=== PATIENT | female | born 1955 | race Hispanic/Latino ===

== ENCOUNTER 2017-01-20 12:47 | Outpatient (CLI) | payer OTHER ==
--- NOTE | 2017-01-20 15:39 | Mammography Report ---
Screening augmented mammogram: Images over the implant as well as displacement images are obtained. Submuscular non-saline implants are present. The implants appear intact but the capsules are calcified. The surrounding tissue that an intermediate fibroglandular density. There is no mass, architectural distortion, or parenchymal calcification. Patient is unaware of prior exam location. CAD used. Impression: Calcified implant. No breast pathology identified. Recommendation: Annual mammogram followup. BI-RADS CATEGORY: 1 = Negative ACR BI-RADS MAMMOGRAPHIC CODES: 0 = Needs additional imaging evaluation; 1 = Negative; 2 = Benign; 3 = Probably benign; 4 = Suspicious; 5 = Malignant; 6 = Known biopsy-proven malignancy COMMENT: 1. Dense breast tissue, i.e., adenosis, fibrocystic changes, etc., may obscure an underlying neoplasm. 2. Approximately 10% of cancers are not detected with mammography. 3. A negative mammography report should not delay biopsy if a clinically suspicious mass is present.
== END 2017-01-20 12:48 | disposition home or self-care (01) ==
LOC: MAMMO 12:47
DX: Z12.31 Encounter for screening mammogram for malignant neoplasm of breast (principal); Z98.82 Breast implant status
CPT/HCPCS: 77067; G0202

== ENCOUNTER 2018-10-13 12:47 | Outpatient (CLI) | payer OTHER ==
--- NOTE | 2018-10-14 13:25 | Mammography Report ---
BILATERAL AUGMENTED DIGITAL SCREENING MAMMOGRAM with CAD CLINICAL: Routine mammographic screening Caps comparison: 01/20/2017. TECHNIQUE: Routine views without and with implant displacement were performed. CAD was utilized. FINDINGS: Routine views without and with implant displacement demonstrate heterogeneously dense breas ts, which may obscure small masses. Bilateral parenchymal asymmetries require additional imaging. No architectural distortion or suspicio us calcifications. IMPRESSION: Lateral asymmetries requiring additional imaging. Recommend recall for bilateral implant displaced spot compression views and bilateral breast ultrasound if needed. BI-RADS Category 0: Needs Additional Imaging Signer Name: Eric Ansari MD Signed: 10/14/2018 1:20 PM Workstation Name: [id number]
== END 2018-10-13 12:48 | disposition home or self-care (01) ==
LOC: MAMMO 12:47
DX: Z12.31 Encounter for screening mammogram for malignant neoplasm of breast (principal)
CPT/HCPCS: 77067